=== PATIENT | male | born 1955 | race African-American/Black ===

== ENCOUNTER 2023-04-15 13:30 | Inpatient (IN) | payer OTHER ==
[2023-04-15 14:47] VITALS: BMI 18.0
[2023-04-15] MEDS ORDERED: guaiFENesin 600 MG TABLET.ER (FP) PO PRN (16:48)
[2023-04-15] MEDS ORDERED: ACETAMINOPHEN 325 MG TABLET (FP) PO PRN (16:48)
[2023-04-15] MEDS ORDERED: NICOTINE 10 MG CARTRIDGE (INHALER) IH PRN (16:48)
[2023-04-15] MEDS ORDERED: NICOTINE POLACRILEX 2 MG GUM BUC PRN (16:48)
[2023-04-15] MEDS ORDERED: MAG HYDROX/AL HYDROX/SIMETH 30 ML UNIT-DOSE CUP PO PRN (16:48)
[2023-04-15] MEDS ORDERED: NALOXONE HCL (KLOXXADO) 8 MG SPRAY NS PRN (16:48)
[2023-04-15] MEDS ORDERED: NALOXONE HCL 0.4 MG/ML VIAL IM PRN (16:48)
[2023-04-15] MEDS ORDERED: LOPERAMIDE HCL 2 MG CAPSULE PO PRN (16:48)
[2023-04-15] MEDS ORDERED: BENZOCAINE/MENTHOL (CHLORASEPTIC ) LOZENGE MM PRN (16:48)
[2023-04-15] MEDS ORDERED: BENZONATATE 200 MG CAPSULE PO PRN (16:48)
[2023-04-15] MEDS ORDERED: methaDONE HCL 10 MG TABLET (FOR DETOX USE ONLY) PO ONE ×2 (16:48→19:15)
[2023-04-15] MEDS ORDERED: IBUPROFEN 600 MG TABLET (FP) PO PRN (16:48)
[2023-04-15] MEDS ORDERED: BISMUTH SUBSALICYLATE 524 MG/30 ML PO PRN (16:48)
[2023-04-15] MEDS ORDERED: MAGNESIUM HYDROX 2400MG/30ML ORAL SUSPENSION 30 ML CUP PO PRN (16:48)
[2023-04-15] MEDS ORDERED: POLYETHYLENE GLYCOL (HEALTHYLAX) 3350 17 GM PACKET PO PRN (16:48)
[2023-04-15] MEDS ORDERED: IBUPROFEN 400 MG TABLET (FP) PO PRN (16:48)
[2023-04-15] MEDS ORDERED: DICYCLOMINE HCL 10 MG CAPSULE PO PRN (16:48)
[2023-04-15] MEDS ORDERED: BACLOFEN 10 MG TABLET (FP) PO PRN (16:48)
[2023-04-15] MEDS: MELATONIN 5 MG TABLETS PO SCH (23:00)
[2023-04-15] MEDS: THIAMINE HCL 100 MG TABLET (FP) PO SCH (23:00)
[2023-04-16] MEDS: PRENATAL VITAMINS W/ FOLIC ACID TABLET (FP) PO SCH (10:12)
[2023-04-16] MEDS: cloNIDine HCL 0.1 MG TABLET PO PRN ×2 (10:47→22:14)
[2023-04-16] MEDS: LISINOPRIL 10 MG TABLET PO SCH (11:23)
[2023-04-16 11:36] LABS: HEMATOCRIT 46.4 % (35.4-49); HEMOGLOBIN 15.4 GM/dL (11.7-16.9); MCH 31.8 pg (25.7-33.7); MCHC 33.2 g/dl (32.0-35.9); MEAN CELL VOLUME 95.8 fl (80-96); MEAN PLT VOLUME 9.2 fl (7.5-11.1); PLATELET COUNT 239 10^3/uL (134-434); RBC 4.84 M/mm3 (4.00-5.60); RDW 14.8 % (11.9-15.9); WHITE BLOOD COUNT 2.8 K/mm3 (4.0-10.0)
[2023-04-16 11:40] LABS: POTASSIUM 4.1 mmol/L (3.5-5.1)
[2023-04-16 11:43] LABS: ALBUMIN 3.6 g/dl (3.4-5.0); BLOOD UREA NITROGEN 10.2 mg/dL (7-18); CALCIUM 9.7 mg/dL (8.5-10.1)
[2023-04-16 11:46] LABS: CREATININE 0.8 mg/dL (0.55-1.3)
[2023-04-16 11:48] LABS: BILIRUBIN,TOTAL 0.8 mg/dL (0.2-1); TOT PROT 7.2 g/dl (6.4-8.2)
[2023-04-16] MEDS ORDERED: LORazepam 2 MG TABLET PO ONE (13:15)
[2023-04-16] MEDS: MELATONIN 5 MG TABLETS PO SCH (22:13)
[2023-04-16] MEDS: THIAMINE HCL 100 MG TABLET (FP) PO SCH (22:13)
[2023-04-17] MEDS ORDERED: methaDONE HCL 10 MG TABLET (FOR DETOX USE ONLY) PO ONE (10:00)
[2023-04-17] MEDS: PRENATAL VITAMINS W/ FOLIC ACID TABLET (FP) PO SCH (10:05)
[2023-04-17] MEDS: LISINOPRIL 10 MG TABLET PO SCH (10:05)
[2023-04-17] MEDS: LACTULOSE 20 GM/30 ML UDC (FOR ORAL USE ONLY) PO SCH ×3 (15:13→22:30)
[2023-04-17] MEDS: THIAMINE HCL 100 MG TABLET (FP) PO SCH (22:30)
[2023-04-17] MEDS: MELATONIN 5 MG TABLETS PO SCH (22:30)
[2023-04-18] MEDS: PRENATAL VITAMINS W/ FOLIC ACID TABLET (FP) PO SCH (10:21)
[2023-04-18] MEDS: LACTULOSE 20 GM/30 ML UDC (FOR ORAL USE ONLY) PO SCH ×4 (10:22→22:41)
[2023-04-18] MEDS: ALBUTEROL SO4 HFA INHALER IH PRN (10:22)
[2023-04-18] MEDS: LISINOPRIL 10 MG TABLET PO SCH (10:22)
[2023-04-18] MEDS: THIAMINE HCL 100 MG TABLET (FP) PO SCH (22:26)
[2023-04-18] MEDS: MELATONIN 5 MG TABLETS PO SCH (22:27)
[2023-04-19] MEDS: ALBUTEROL SO4 HFA INHALER IH PRN (07:33)
[2023-04-19] MEDS ORDERED: methaDONE HCL 10 MG TABLET (FOR DETOX USE ONLY) PO ONE (10:00)
[2023-04-19] MEDS: LACTULOSE 20 GM/30 ML UDC (FOR ORAL USE ONLY) PO SCH ×4 (10:05→22:28)
[2023-04-19] MEDS: PRENATAL VITAMINS W/ FOLIC ACID TABLET (FP) PO SCH (10:06)
[2023-04-19] MEDS: LISINOPRIL 10 MG TABLET PO SCH (10:06)
[2023-04-19 11:00] LABS: BASO % 0.4 % (0-2.0); EOS % 3.8 % (0-4.5); HEMATOCRIT 44.7 % (35.4-49); HEMOGLOBIN 14.7 GM/dL (11.7-16.9); LYMPH % 27.9 % (8-40); MCH 31.1 pg (25.7-33.7); MCHC 32.9 g/dl (32.0-35.9); MEAN CELL VOLUME 94.6 fl (80-96); MEAN PLT VOLUME 8.9 fl (7.5-11.1); MONO % 13.9 % (3.8-10.2); PLATELET COUNT 214 10^3/uL (134-434); RBC 4.72 M/mm3 (4.00-5.60); RDW 14.9 % (11.9-15.9); WHITE BLOOD COUNT 3.7 K/mm3 (4.0-10.0)
[2023-04-19] MEDS: THIAMINE HCL 100 MG TABLET (FP) PO SCH (22:27)
[2023-04-19] MEDS: MELATONIN 5 MG TABLETS PO SCH (22:27)
[2023-04-20] MEDS: ALBUTEROL SO4 HFA INHALER IH PRN (05:51)
[2023-04-20 06:19] VITALS: BP 103/70; PULSE 73; RESP 16; TEMP 97.5
[2023-04-20] MEDS: PRENATAL VITAMINS W/ FOLIC ACID TABLET (FP) PO SCH (09:05)
== END 2023-04-20 09:12 | disposition home or self-care (01) | DRG 897 ==
LOC: YASAS 13:30 → Y6N 17:33
PROVIDERS: ADMIT Allergy & Immunology; ATTEND Surgery
PROC: HZ2ZZZZ Detoxification Services for Substance Abuse Treatment (ICD-10-PCS; principal; 2023-04-15)
DX: F11.23 Opioid dependence with withdrawal (principal); E72.20 Disorder of urea cycle metabolism, unspecified; F17.210 Nicotine dependence, cigarettes, uncomplicated; I10 Essential (primary) hypertension; J44.9 Chronic obstructive pulmonary disease, unspecified; J45.30 Mild persistent asthma, uncomplicated; M54.50 Low back pain, unspecified; G89.29 Other chronic pain; R76.11 Nonspecific reaction to tuberculin skin test without active tuberculosis; Z86.19 Personal history of other infectious and parasitic diseases
CPT/HCPCS: 36415; 71046-TC-FY; 80053; 82140; 83036; 85025; 85027; 86593; 86780; 87635; 93005; 93010; J0475

== ENCOUNTER 2023-08-15 11:13 | Inpatient (IN) | payer OTHER ==
[2023-08-15 12:17] VITALS: BMI 18.6
[2023-08-15] MEDS ORDERED: LOPERAMIDE HCL 2 MG CAPSULE PO PRN (12:41)
[2023-08-15] MEDS ORDERED: ACETAMINOPHEN 325 MG TABLET (FP) PO PRN (12:41)
[2023-08-15] MEDS ORDERED: guaiFENesin 600 MG TABLET.ER (FP) PO PRN (12:41)
[2023-08-15] MEDS ORDERED: MAGNESIUM HYDROX 2400MG/30ML ORAL SUSPENSION 30 ML CUP PO PRN (12:41)
[2023-08-15] MEDS ORDERED: NICOTINE POLACRILEX 2 MG GUM BUC PRN (12:41)
[2023-08-15] MEDS ORDERED: ONDANSETRON *ODT* 4 MG TABLET SL PRN (12:41)
[2023-08-15] MEDS ORDERED: NALOXONE HCL (KLOXXADO) 8 MG SPRAY NS PRN (12:41)
[2023-08-15] MEDS ORDERED: hydrOXYzine PAMOATE 25 MG CAPSULE (FP) PO PRN (12:41)
[2023-08-15] MEDS ORDERED: BENZONATATE 200 MG CAPSULE PO PRN (12:41)
[2023-08-15] MEDS ORDERED: POLYETHYLENE GLYCOL (HEALTHYLAX) 3350 17 GM PACKET PO PRN (12:41)
[2023-08-15] MEDS ORDERED: IBUPROFEN 400 MG TABLET (FP) PO PRN (12:41)
[2023-08-15] MEDS ORDERED: BISMUTH SUBSALICYLATE 524 MG/30 ML PO PRN (12:41)
[2023-08-15] MEDS ORDERED: BENZOCAINE/MENTHOL (CHLORASEPTIC ) LOZENGE MM PRN (12:41)
[2023-08-15] MEDS ORDERED: MAG HYDROX/AL HYDROX/SIMETH 30 ML UNIT-DOSE CUP PO PRN (12:41)
[2023-08-15] MEDS ORDERED: NALOXONE HCL 0.4 MG/ML VIAL IM PRN (12:41)
[2023-08-15] MEDS ORDERED: methaDONE HCL 10 MG TABLET (FOR DETOX USE ONLY) PO ONE (18:15)
[2023-08-15] MEDS: MELATONIN 5 MG TABLETS PO SCH (22:23)
[2023-08-15] MEDS: THIAMINE HCL 100 MG TABLET (FP) PO SCH (22:23)
[2023-08-16] MEDS: NICOTINE 21 MG/24 HOURS TOPICAL PATCH TD SCH (09:28)
[2023-08-16] MEDS: PRENATAL VITAMINS W/ FOLIC ACID TABLET (FP) PO SCH (09:28)
[2023-08-16 12:25] LABS: HEMATOCRIT 35.8 % (35.4-49); HEMOGLOBIN 12.3 GM/dL (11.7-16.9); MCH 32.7 pg (25.7-33.7); MCHC 34.3 g/dl (32.0-35.9); MEAN CELL VOLUME 95.4 fl (80-96); MEAN PLT VOLUME 8.6 fl (7.5-11.1); PLATELET COUNT 231 10^3/uL (134-434); RBC 3.75 M/mm3 (4.00-5.60); RDW 15.1 % (11.9-15.9); WHITE BLOOD COUNT 2.8 K/mm3 (4.0-10.0)
[2023-08-16 13:28] LABS: POTASSIUM 3.9 mmol/L (3.5-5.1)
[2023-08-16 13:30] LABS: CALCIUM 8.6 mg/dL (8.5-10.1)
[2023-08-16 13:31] LABS: ALBUMIN 3.4 g/dl (3.4-5.0); BLOOD UREA NITROGEN 11.5 mg/dL (7-18)
[2023-08-16 13:34] LABS: CREATININE 0.8 mg/dL (0.55-1.3)
[2023-08-16 13:35] LABS: TOT PROT 6.6 g/dl (6.4-8.2)
[2023-08-16 13:36] LABS: BILIRUBIN,TOTAL 0.4 mg/dL (0.2-1)
[2023-08-16] MEDS: THIAMINE HCL 100 MG TABLET (FP) PO SCH (21:08)
[2023-08-16] MEDS: MELATONIN 5 MG TABLETS PO SCH (21:08)
[2023-08-16] MEDS: IBUPROFEN 600 MG TABLET (FP) PO PRN (21:09)
[2023-08-16] MEDS: cloNIDine HCL 0.1 MG TABLET PO PRN (21:09)
[2023-08-17] MEDS: cloNIDine HCL 0.1 MG TABLET PO PRN ×2 (05:37→23:17)
[2023-08-17] MEDS: NICOTINE 21 MG/24 HOURS TOPICAL PATCH TD SCH (09:25)
[2023-08-17] MEDS: PRENATAL VITAMINS W/ FOLIC ACID TABLET (FP) PO SCH (09:25)
[2023-08-17] MEDS ORDERED: methaDONE HCL 10 MG TABLET (FOR DETOX USE ONLY) PO ONE (10:00)
[2023-08-17] MEDS: MELATONIN 5 MG TABLETS PO SCH (22:27)
[2023-08-17] MEDS: THIAMINE HCL 100 MG TABLET (FP) PO SCH (22:59)
[2023-08-17] MEDS: IBUPROFEN 600 MG TABLET (FP) PO PRN (23:17)
[2023-08-18] MEDS ORDERED: ALBUTEROL SO4 HFA INHALER IH PRN (05:55)
[2023-08-18 09:02] VITALS: BP 124/67; PULSE 67; RESP 18; TEMP 97.8
[2023-08-18] MEDS ORDERED: LISINOPRIL 10 MG TABLET PO SCH (10:00)
== END 2023-08-18 09:20 | disposition home or self-care (01) | DRG 897 ==
LOC: EDBD 11:13 → YASAS 11:13 → Y3N 13:29
PROVIDERS: ADMIT Allergy & Immunology; ATTEND Surgery
PROC: HZ2ZZZZ Detoxification Services for Substance Abuse Treatment (ICD-10-PCS; principal; 2023-08-15)
DX: F11.23 Opioid dependence with withdrawal (principal); F14.20 Cocaine dependence, uncomplicated; F17.210 Nicotine dependence, cigarettes, uncomplicated; I10 Essential (primary) hypertension; J45.20 Mild intermittent asthma, uncomplicated; M54.50 Low back pain, unspecified; G89.29 Other chronic pain; R76.8 Other specified abnormal immunological findings in serum; Z86.19 Personal history of other infectious and parasitic diseases
CPT/HCPCS: 36415; 80053; 80307; 82140; 85027; 86593; 86780; 87635; 93005; 93010

== ENCOUNTER 2023-10-11 22:16 | Inpatient (IN) | payer OTHER ==
[2023-10-11 23:12] VITALS: BMI 16.0
[2023-10-12] MEDS ORDERED: LOPERAMIDE HCL 2 MG CAPSULE PO PRN (02:20)
[2023-10-12] MEDS ORDERED: ONDANSETRON *ODT* 4 MG TABLET SL PRN (02:20)
[2023-10-12] MEDS ORDERED: NALOXONE HCL 0.4 MG/ML VIAL IM PRN (02:20)
[2023-10-12] MEDS ORDERED: ACETAMINOPHEN 325 MG TABLET (FP) PO PRN (02:20)
[2023-10-12] MEDS ORDERED: guaiFENesin 600 MG TABLET.ER (FP) PO PRN (02:20)
[2023-10-12] MEDS ORDERED: BENZONATATE 200 MG CAPSULE PO PRN (02:20)
[2023-10-12] MEDS ORDERED: MAG HYDROX/AL HYDROX/SIMETH 30 ML UNIT-DOSE CUP PO PRN (02:20)
[2023-10-12] MEDS ORDERED: IBUPROFEN 600 MG TABLET (FP) PO PRN (02:20)
[2023-10-12] MEDS ORDERED: BISMUTH SUBSALICYLATE 524 MG/30 ML PO PRN (02:20)
[2023-10-12] MEDS ORDERED: BENZOCAINE/MENTHOL (CHLORASEPTIC ) LOZENGE MM PRN (02:20)
[2023-10-12] MEDS ORDERED: MAGNESIUM HYDROX 2400MG/30ML ORAL SUSPENSION 30 ML CUP PO PRN (02:20)
[2023-10-12] MEDS ORDERED: POLYETHYLENE GLYCOL (HEALTHYLAX) 3350 17 GM PACKET PO PRN (02:20)
[2023-10-12] MEDS ORDERED: NALOXONE HCL (KLOXXADO) 8 MG SPRAY NS PRN (02:20)
[2023-10-12] MEDS ORDERED: NICOTINE POLACRILEX 2 MG GUM BUC PRN (02:20)
[2023-10-12] MEDS ORDERED: IBUPROFEN 400 MG TABLET (FP) PO PRN (02:20)
[2023-10-12] MEDS ORDERED: methaDONE HCL 10 MG TABLET (FOR DETOX USE ONLY) ONE (02:48)
[2023-10-12] MEDS ORDERED: methaDONE HCL 10 MG TABLET (FOR DETOX USE ONLY) PO ONE (03:00)
[2023-10-12] MEDS: cloNIDine HCL 0.1 MG TABLET PO PRN ×2 (03:26→21:30)
[2023-10-12] MEDS: PRENATAL VITAMINS W/ FOLIC ACID TABLET (FP) PO SCH (10:34)
[2023-10-12] MEDS: NICOTINE 14 MG/24 HOURS TOPICAL PATCH TD SCH (10:34)
[2023-10-12] MEDS: ALBUTEROL SO4 HFA INHALER IH PRN ×2 (13:58→21:30)
[2023-10-12] MEDS: LISINOPRIL 10 MG TABLET PO SCH (14:01)
[2023-10-12] MEDS: THIAMINE HCL 100 MG TABLET (FP) PO SCH (21:30)
[2023-10-12] MEDS: MELATONIN 5 MG TABLETS PO SCH (21:31)
[2023-10-13] MEDS: cloNIDine HCL 0.1 MG TABLET PO PRN (06:27)
[2023-10-13] MEDS: NICOTINE 14 MG/24 HOURS TOPICAL PATCH TD SCH (10:16)
[2023-10-13] MEDS: PRENATAL VITAMINS W/ FOLIC ACID TABLET (FP) PO SCH (10:16)
[2023-10-13] MEDS: LISINOPRIL 10 MG TABLET PO SCH (10:16)
[2023-10-13 11:33] LABS: HEMATOCRIT 41.7 % (35.4-49); HEMOGLOBIN 13.6 GM/dL (11.7-16.9); MCHC 32.7 g/dl (32.0-35.9); MEAN CELL VOLUME 94.8 fl (80-96); MEAN PLT VOLUME 9.3 fl (7.5-11.1); PLATELET COUNT 183 10^3/uL (134-434); RDW 15.5 % (11.9-15.9); WHITE BLOOD COUNT 3.7 K/mm3 (4.0-10.0)
[2023-10-13 11:38] LABS: POTASSIUM 3.1 mmol/L (3.5-5.1)
[2023-10-13 11:44] LABS: ALBUMIN 2.8 g/dl (3.4-5.0)
[2023-10-13 11:46] LABS: BLOOD UREA NITROGEN 15.2 mg/dL (7-18)
[2023-10-13 11:48] LABS: CREATININE 0.6 mg/dL (0.55-1.3)
[2023-10-13 11:49] LABS: BILIRUBIN,TOTAL 1.1 mg/dL (0.2-1); TOT PROT 6.3 g/dl (6.4-8.2)
[2023-10-13] MEDS ORDERED: POTASSIUM CHLORIDE ORAL LIQUID 20 MEQ/15 ML PO ONE (14:15)
[2023-10-13] MEDS: MELATONIN 5 MG TABLETS PO SCH (22:36)
[2023-10-13] MEDS: THIAMINE HCL 100 MG TABLET (FP) PO SCH (22:36)
[2023-10-13] MEDS: POTASSIUM CHLORIDE ORAL LIQUID 20 MEQ/15 ML PO SCH (22:36)
[2023-10-14] MEDS: cloNIDine HCL 0.1 MG TABLET PO PRN (05:43)
[2023-10-14] MEDS ORDERED: methaDONE HCL 10 MG TABLET (FOR DETOX USE ONLY) PO ONE (10:00)
[2023-10-14] MEDS: PRENATAL VITAMINS W/ FOLIC ACID TABLET (FP) PO SCH (10:22)
[2023-10-14] MEDS: NICOTINE 14 MG/24 HOURS TOPICAL PATCH TD SCH (10:23)
[2023-10-14] MEDS: LISINOPRIL 10 MG TABLET PO SCH (10:23)
[2023-10-14] MEDS: POTASSIUM CHLORIDE ORAL LIQUID 20 MEQ/15 ML PO SCH (10:23)
[2023-10-14] MEDS ORDERED: P-EPHED 60MG/TRIPROLIDI 2.5MG TABLET PO PRN (10:29)
[2023-10-14] MEDS ORDERED: POTASSIUM CHLORIDE TABS 20 MEQ TABLET.ER (FP) PO ONE (22:00)
[2023-10-14] MEDS: MELATONIN 5 MG TABLETS PO SCH (22:27)
[2023-10-14] MEDS: OSELTAMIVIR PHOSPHATE 75 MG CAPSULE PO SCH (22:27)
[2023-10-14] MEDS: THIAMINE HCL 100 MG TABLET (FP) PO SCH (22:27)
[2023-10-15] MEDS: PRENATAL VITAMINS W/ FOLIC ACID TABLET (FP) PO SCH (10:41)
[2023-10-15] MEDS: OSELTAMIVIR PHOSPHATE 75 MG CAPSULE PO SCH ×2 (10:41→22:42)
[2023-10-15] MEDS: LISINOPRIL 10 MG TABLET PO SCH (10:41)
[2023-10-15] MEDS: NICOTINE 14 MG/24 HOURS TOPICAL PATCH TD SCH (10:42)
[2023-10-15] MEDS ORDERED: ASPIRIN 325 MG ENTERIC COATED TABLET (FP) PO ONE (17:26)
[2023-10-15] MEDS: MELATONIN 5 MG TABLETS PO SCH (22:41)
[2023-10-15] MEDS: THIAMINE HCL 100 MG TABLET (FP) PO SCH (22:42)
[2023-10-16] MEDS ORDERED: methaDONE HCL 10 MG TABLET (FOR DETOX USE ONLY) PO ONE (10:00)
[2023-10-16] MEDS: NICOTINE 14 MG/24 HOURS TOPICAL PATCH TD SCH (10:38)
[2023-10-16] MEDS: OSELTAMIVIR PHOSPHATE 75 MG CAPSULE PO SCH ×2 (10:38→22:35)
[2023-10-16] MEDS: PRENATAL VITAMINS W/ FOLIC ACID TABLET (FP) PO SCH (10:38)
[2023-10-16] MEDS: LISINOPRIL 10 MG TABLET PO SCH (10:38)
[2023-10-16] MEDS: THIAMINE HCL 100 MG TABLET (FP) PO SCH (22:35)
[2023-10-16] MEDS: MELATONIN 5 MG TABLETS PO SCH (22:35)
[2023-10-17 08:51] VITALS: RESP 16
[2023-10-17] MEDS: OSELTAMIVIR PHOSPHATE 75 MG CAPSULE PO SCH (09:50)
[2023-10-17] MEDS: PRENATAL VITAMINS W/ FOLIC ACID TABLET (FP) PO SCH (09:50)
[2023-10-17] MEDS: LISINOPRIL 10 MG TABLET PO SCH (09:50)
[2023-10-17] MEDS: NICOTINE 14 MG/24 HOURS TOPICAL PATCH TD SCH (09:50)
[2023-10-17] MEDS: ALBUTEROL SO4 HFA INHALER IH PRN (09:51)
[2023-10-17] MEDS ORDERED: ALBUTEROL SO4 2.5/IPRATROPIUM 0.5 INH SOL 3 ML VIAL.NEB. NEB ONE (11:42)
[2023-10-17] MEDS ORDERED: AZITHROMYCIN 250 MG TABLET PO ONE (12:28)
[2023-10-17 13:13] VITALS: TEMP 97.5
[2023-10-17] MEDS ORDERED: guaiFENesin 200 MG/10 ML 10 ML UNIT-DOSE CUPS PO SCH (14:00)
[2023-10-17] MEDS ORDERED: TIOTROPIUM BROMIDE 2.5 MCG (SPIRIVA) RESPIMAT INHALER IH SCH (16:00)
[2023-10-17 17:16] VITALS: BP 104/60; PULSE 87
[2023-10-18] MEDS ORDERED: AZITHROMYCIN 250 MG TABLET PO SCH (10:00)
== END 2023-10-17 19:33 | disposition left against medical advice (07) | DRG 894 ==
LOC: YASAS 22:16 → Y3N 10-12 02:13
PROVIDERS: ADMIT Allergy & Immunology; ATTEND Allergy & Immunology
PROC: HZ2ZZZZ Detoxification Services for Substance Abuse Treatment (ICD-10-PCS; principal; 2023-10-12)
DX: F11.23 Opioid dependence with withdrawal (principal); F17.210 Nicotine dependence, cigarettes, uncomplicated; E87.6 Hypokalemia; I10 Essential (primary) hypertension; J45.20 Mild intermittent asthma, uncomplicated; J10.1 Influenza due to other identified influenza virus with other respiratory manifestations; Z86.11 Personal history of tuberculosis; Z86.19 Personal history of other infectious and parasitic diseases
CPT/HCPCS: 0241U-QW; 36415; 71046-TC-FY; 80053; 80307; 82140; 84132; 85027; 86593; 86780; 87635; 87811; 94640

== ENCOUNTER 2023-10-21 13:58 | Emergency (ER) | payer OTHER ==
[2023-10-21] MEDS ORDERED: DEXAMETHASONE SOD PHOSPHATE 10 MG/1 ML VIAL IVPUSH ONE (14:58)
[2023-10-21] MEDS ORDERED: DEXAMETHASONE SOD PHOSPHATE 10 MG/1 ML VIAL IM ONE (15:57)
[2023-10-21 16:02] LABS: BASO % 0.6 % (0-2.0); EOS % 2.1 % (0-4.5); HEMATOCRIT 33.6 % (35.4-49); LYMPH % 19.3 % (8-40); MCH 31.7 pg (25.7-33.7); MCHC 32.9 g/dl (32.0-35.9); MEAN CELL VOLUME 96.3 fl (80-96); MEAN PLT VOLUME 8.3 fl (7.5-11.1); PLATELET COUNT 309 10^3/uL (134-434); RBC 3.49 M/mm3 (4.00-5.60); RDW 15.2 % (11.9-15.9); WHITE BLOOD COUNT 6.8 K/mm3 (4.0-10.0)
[2023-10-21] MEDS ORDERED: ALBUTEROL SO4 2.5/IPRATROPIUM 0.5 INH SOL 3 ML VIAL.NEB. NEB ONE (16:05)
[2023-10-21] MEDS ORDERED: DEXAMETHASONE SOD PHOSPHATE 10 MG/1 ML VIAL ONE (16:05)
[2023-10-21 16:12] VITALS: BMI 21.1
[2023-10-21] MEDS: ALBUTEROL SO4 2.5/IPRATROPIUM 0.5 INH SOL 3 ML VIAL.NEB. NEB SCH ×3 (16:17→18:30)
[2023-10-21 16:27] LABS: POTASSIUM 3.7 mmol/L (3.5-5.1)
[2023-10-21 16:29] LABS: CALCIUM 8.5 mg/dL (8.5-10.1)
[2023-10-21 16:30] LABS: ALBUMIN 2.8 g/dl (3.4-5.0); BLOOD UREA NITROGEN 14.1 mg/dL (7-18); MAGNESIUM 2.1 mg/dL (1.8-2.4)
[2023-10-21 16:33] LABS: CREATININE 0.8 mg/dL (0.55-1.3)
[2023-10-21 16:34] LABS: BILIRUBIN,TOTAL 0.4 mg/dL (0.2-1); TOT PROT 6.6 g/dl (6.4-8.2)
[2023-10-21 19:12] VITALS: BP 110/59; PULSE 92; RESP 14; TEMP 98.1
== END 2023-10-21 20:24 | disposition home or self-care (01) ==
LOC: JER 13:58
PROC: 3E023GC Introduction of Other Therapeutic Substance into Muscle, Percutaneous Approach (ICD-10-PCS; principal; 2023-10-21)
PROC: 3E0F7GC Introduction of Other Therapeutic Substance into Respiratory Tract, Via Natural or Artificial Opening (ICD-10-PCS; 2023-10-21)
DX: R06.02 Shortness of breath (principal); D64.9 Anemia, unspecified; Z20.822 Contact with and (suspected) exposure to COVID-19
CPT/HCPCS: 0241U-QW; 36415; 71046-TC-FY; 80053; 82272; 83735; 83880; 84484; 85025; 93005; 93010; 94640; 96372; 99284-25; J1100

== ENCOUNTER 2023-10-21 20:13 | Inpatient (IN) | payer OTHER ==
[2023-10-21 21:04] VITALS: BMI 22.8
[2023-10-21] MEDS ORDERED: ALBUTEROL SO4 HFA INHALER IH PRN (23:08)
[2023-10-21] MEDS ORDERED: cloNIDine HCL 0.1 MG TABLET PO ONE (23:09)
[2023-10-21] MEDS ORDERED: IBUPROFEN 400 MG TABLET (FP) PO PRN (23:10)
[2023-10-21] MEDS ORDERED: ACETAMINOPHEN 325 MG TABLET (FP) PO PRN (23:10)
[2023-10-21] MEDS ORDERED: P-EPHED 60MG/TRIPROLIDI 2.5MG TABLET PO PRN (23:10)
[2023-10-21] MEDS ORDERED: NALOXONE HCL 0.4 MG/ML VIAL IVPUSH PRN (23:10)
[2023-10-21] MEDS ORDERED: NALOXONE HCL (KLOXXADO) 8 MG SPRAY NS PRN (23:10)
[2023-10-21] MEDS ORDERED: COLLOIDAL OATMEAL 1 BAR EACH TP PRN (23:10)
[2023-10-21] MEDS ORDERED: MAGNESIUM HYDROX 2400MG/30ML ORAL SUSPENSION 30 ML CUP PO PRN (23:10)
[2023-10-21] MEDS ORDERED: NICOTINE POLACRILEX 2 MG GUM BUC PRN (23:10)
[2023-10-21] MEDS ORDERED: guaiFENesin 600 MG TABLET.ER (FP) PO PRN (23:10)
[2023-10-21] MEDS ORDERED: BENZOCAINE/MENTHOL (CHLORASEPTIC ) LOZENGE MM PRN (23:10)
[2023-10-21] MEDS ORDERED: BENZONATATE 200 MG CAPSULE PO PRN (23:10)
[2023-10-21] MEDS ORDERED: MAG HYDROX/AL HYDROX/SIMETH 30 ML UNIT-DOSE CUP PO PRN (23:10)
[2023-10-21] MEDS ORDERED: LOPERAMIDE HCL 2 MG CAPSULE PO PRN (23:10)
[2023-10-21] MEDS ORDERED: IBUPROFEN 600 MG TABLET (FP) PO PRN (23:10)
[2023-10-21] MEDS ORDERED: POLYETHYLENE GLYCOL (HEALTHYLAX) 3350 17 GM PACKET PO PRN (23:10)
[2023-10-21] MEDS ORDERED: ACETAMINOPHEN 325 MG TABLET (FP) PO ONE (23:14)
[2023-10-21] MEDS ORDERED: ALBUTEROL SO4 2.5/IPRATROPIUM 0.5 INH SOL 3 ML VIAL.NEB. NEB ONE (23:15)
[2023-10-22] MEDS: MELATONIN 5 MG TABLETS PO SCH ×2 (04:41→21:13)
[2023-10-22] MEDS: AZITHROMYCIN 500 MG TABLET PO SCH (09:12)
[2023-10-22] MEDS: PRENATAL VITAMINS W/ FOLIC ACID TABLET (FP) PO SCH (09:12)
[2023-10-22] MEDS: LISINOPRIL 10 MG TABLET PO SCH (09:13)
[2023-10-22] MEDS ORDERED: THIAMINE HCL 100 MG TABLET (FP) PO SCH (22:00)
[2023-10-23] MEDS: PRENATAL VITAMINS W/ FOLIC ACID TABLET (FP) PO SCH (09:17)
[2023-10-23] MEDS: AZITHROMYCIN 500 MG TABLET PO SCH (09:17)
[2023-10-23] MEDS: LISINOPRIL 10 MG TABLET PO SCH (09:17)
[2023-10-23 10:11] VITALS: BP 161/83; PULSE 71; RESP 16; TEMP 97.8
== END 2023-10-23 11:20 | disposition left against medical advice (07) | DRG 894 ==
LOC: YASAS 20:13 → Y3E 10-22 03:27
PROVIDERS: ADMIT Allergy & Immunology; ATTEND Psychiatry & Neurology Pain Medicine
PROC: HZ42ZZZ Group Counseling for Substance Abuse Treatment, Cognitive-Behavioral (ICD-10-PCS; principal; 2023-10-22)
DX: F10.20 Alcohol dependence, uncomplicated (principal); F17.210 Nicotine dependence, cigarettes, uncomplicated; I10 Essential (primary) hypertension; Z86.11 Personal history of tuberculosis; Z86.19 Personal history of other infectious and parasitic diseases; Z87.09 Personal history of other diseases of the respiratory system
CPT/HCPCS: 94640